=== PATIENT | female | born 2000 | race Caucasian/White ===

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

== ENCOUNTER → 2022-06-01 14:55 | Outpatient (BNVA) | payer OTHER, BC, SELFPAY | PROVIDERS: PCP Family Medicine; Visit Provider Family Medicine | DX: F98.8 Other specified behavioral and emotional disorders with onset usually occurring in childhood and adolescence (principal); E10.9 Type 1 diabetes mellitus without complications | CPT/HCPCS: 80053; 80061; 82043; 82306; 82784; 83036; 83516; 84443; 84480; 84481; 86376; 86800 ==

== ENCOUNTER 2022-06-05 22:14 | Emergency (ER) | payer OTHER, BC, MEDICAID, SELFPAY ==
[2022-06-05 22:28] VITALS: BP 139/90; PULSE 97; RESP 16; TEMP 36.5; O2SAT 99; BMI 31.1
--- NOTE | 2022-06-05 22:36 | W.ED.BACK ---
HPI - Back Pain/Injury General: Chief Complaint: Back Pain/Injury Stated Complaint: Low back pain Time Seen by Provider: 06/05/22 22:36 History of Present Illness: 21-year-old female comes in today with low back pain. Pain started about 3 days ago and she was evaluated and treated at a chiropractor's office today. Since then patient had increased pain and discomfort. Patient appears nontoxic. Patient denies any loss of bowel or bladder control. Associated symptoms: Deny fever(s) Review of Systems Const: Denies: fever(s) Musc: Reports: back pain PFSH ED PFSH: Medical History ADHD Diagnosed at age 7. Diabetes mellitus type 1 Diagnosed at age 14. Psychiatric care Surgical History History of tympanostomy tube placement Social History Smoking and tobacco status: current every day smoker (vape) Second hand smoke exposure: Yes Alcohol intake: never Desire information about alcohol rehabilitation?: No Desire information about substance/drug rehabilitation?: No Physical Exam Const: COMMON NORMALS: alert HENMT: COMMON NORMALS: normocephalic HEAD & SCALP: normocephalic Neck/C-Spine: COMMON NORMALS: full ROM Resp: COMMON NORMALS: normal respiratory effort Cardio: COMMON NORMALS: regular rate RATE: regular rate Back/Pelvis: THORACIC SPINE/UPPER BACK: No thoracic spinal tenderness LUMBAR SPINE/LOWER BACK: No lumbar spinal tenderness and Yes paraspinal muscle tenderness Neuro: SENSORIUM/ORIENTATION: Yes alert Skin: COMMON NORMALS: turgor normal GENERAL SKIN EXAM: turgor normal Course Vital Signs: Vital signs: Vital Signs Temperature 97.7 F 06/05/22 22:28 Pulse Rate 97 06/05/22 22:28 Respiratory Rate 16 06/05/22 22:28 Blood Pressure 139/90 06/05/22 22:28 Pulse Oximetry 99 06/05/22 22:28 Oxygen Delivery Me thod 06/05/22 22:28 MDM - Back Pain/Injury Medical Decision Making 21-year-old female comes in today for complaints of low back pain. On exam patient has muscle tenderness and tightness of the lower lumbar sacral area of the back. Patient has normal range of motion of the extremities. Vital signs are normal. Differential diagnosis includes but not limited to intervertebral disc disease, muscle strain, and facet arthropathy. Exam notes no signs of serious injury or illness. No signs of cauda equina syndrome was noted. Reviewed exam with patient with recommendations for treatment and follow-up. Recommend return to the ER for worsening symptoms or new concerns. Discharge Plan Discharge Patient Disposition: Home Clinical Impression: Lumbosacral pain Condition: Stable Prescriptions: New ketorolac 10 mg tablet 10 mg PO Q6H PRN (Reason: pain) Qty: 20 0RF cyclobenzaprine 5 mg tablet 5 mg PO .HS Qty: 10 0RF No Action Lantus Solostar U-100 Insulin 100 unit/mL (3 mL) insulin pen 42 unit SUBCUT DAILY PRN insulin aspart U-100 [Novolog Flexpen U-100 Insulin] 100 unit/mL (3 mL) insulin pen 5 unit SUBCUT TID PRN Rx Instructions: Per s/s medroxyprogesterone [Depo-Provera] 150 mg/mL suspension IM .every 3 months bupropion HCl 300 mg tablet extended release 24 hr 300 mg PO QAM Qty: 30 1RF Zofran 4 mg tablet 4 mg PO Q6H PRN (Reason: nausea and vomiting) Qty: 20 0RF Discharge Orders: Discharge ED (Routine); Ordered 06/05/22 Ordered By: Willard Erwin Referrals: Dalila Bailey DO [Primary Care Provider] - Discharge Diet: Usual diet Discharge Activity: Increase activity as tolerated Patient Instructions: Back Pain (ED) Activity Restrictions/Additional Instructions: Home and rest. Activity as tolerated. Gentle stretching and range of motion exercises. Use acetaminophen and ketorolac for pain and discomfort. Use cyclobenzaprine at bedtime for muscle laxation and pain control. Follow-up with primary care for further instruction. Return to ED for new concerns. Do not use ibuprofen or naproxen while using ketorolac. Coding Level of Care Code ED Courier Delivery Driver for Aisha Park
[2022-06-05] MEDS: ketorolac 30 mg/mL INJ IM (23:00)
[2022-06-05] MEDS: orphenadrine 30 mg/mL Inj 2 mL 60 MG IM (23:01)
--- NOTE | 2022-06-05 23:03 | XRR_ITS ---
PROCEDURE INFORMATION: Exam: XR Lumbosacral Spine Exam date and time: 06/05/2022 11:13 PM Age: 21 years old Clinical indication: Low back pain TECHNIQUE: Imaging protocol: Radiologic exam of the lumbosacral spine. Views: 2 or 3 views. COMPARISON: No relevant prior studies available. FINDINGS: Bones/joints: Normal. No acute fracture. Normal alignment. Soft tissues: Unremarkable. XR/XR lumbar spine 2-3V* [id number] IMPRESSION: No acute findings.
[2022-06-05 23:34] VITALS: BP 121/72; PULSE 71; RESP 14; O2SAT 100
== END 2022-06-05 23:35 | disposition home or self-care (01) ==
PROVIDERS: Emergency Provider Nurse Practitioner Family; PCP Family Medicine
DX: M54.50 Low back pain, unspecified (principal); Z79.4 Long term (current) use of insulin; E10.9 Type 1 diabetes mellitus without complications; F17.290 Nicotine dependence, other tobacco product, uncomplicated
CPT/HCPCS: 72100; 96372; 99284; J1885; J2360

== ENCOUNTER → 2022-06-16 11:13 | Outpatient (BNVA) | payer OTHER, BC, MEDICAID, SELFPAY | PROVIDERS: PCP Family Medicine; Visit Provider Nurse Practitioner Family | DX: J02.9 Acute pharyngitis, unspecified (principal); J30.9 Allergic rhinitis, unspecified | CPT/HCPCS: 87071; 87880 ==

== ENCOUNTER → 2022-06-19 08:58 | Outpatient (BNVA) | payer OTHER, BC, MEDICAID, SELFPAY | PROVIDERS: PCP Family Medicine; Visit Provider Family Medicine | DX: R09.81 Nasal congestion (principal); R68.89 Other general symptoms and signs; J06.9 Acute upper respiratory infection, unspecified | CPT/HCPCS: 87400; 87426 ==

== ENCOUNTER → 2022-07-24 13:00 | Outpatient (BNVA) | payer OTHER, BC, MEDICAID, SELFPAY | PROVIDERS: PCP Family Medicine; Visit Provider Obstetrics & Gynecology | DX: Z30.9 Encounter for contraceptive management, unspecified (principal) | CPT/HCPCS: 81025 ==

== ENCOUNTER → 2022-07-28 13:20 | Outpatient (BNVA) | payer OTHER, BC, SELFPAY | PROVIDERS: PCP Family Medicine; Visit Provider Family Medicine | DX: E10.9 Type 1 diabetes mellitus without complications (principal) | CPT/HCPCS: 82043 ==

== ENCOUNTER 2022-10-01 13:48 | Emergency (ER) | payer OTHER, BC, MEDICAID, SELFPAY ==
[2022-10-01 13:52] VITALS: BP 130/85; PULSE 102; RESP 16; TEMP 36.7; O2SAT 97
--- NOTE | 2022-10-01 14:09 | ED_ITS ---
HPI - General Adult General: Chief complaint: General Medical Stated complaint: possible DKA Time Seen by Provider: 10/01/22 13:58 History of Present Illness: Patient is a 22-year-old female comes to the ED with hyperglycemia. Patient is a type I diabetic and has insulin pump. Patient says yesterday her insulin pump broke and she did some heavy alcohol drinking yesterday as well, which could be cause of her symptoms today. She started developing nausea and had a couple episodes of emesis yesterday. She was able to give herself some insulin injections but her blood sugar has been over 400 since yesterday. She got her insulin pump working again today. Today she just feels malaise and endorses nausea. She says she is very thirsty as well. Associated symptoms: Reports malaise, nausea and vomiting; Deny chest pain, dyspnea, headache(s), rash or palpitations Review of Systems Const: Reports: malaise; Denies: fever(s), chills or fatigue Eyes: Denies: change in vision or eye discomfort ENMT: Denies: throat pain, odynophagia, nasal discharge or nasal congestion Card: Denies: chest pain, palpitations, edema, swelling of feet/ankles, dyspnea on exertion or orthopnea Resp: Denies: dyspnea, productive cough or non-productive cough GI: Reports: nausea and vomiting; Denies: abdominal pain, diarrhea, constipation or hematochezia : Denies: flank pain, dysuria or hematuria Musc: Denies: neck pain, back pain or extremity swelling Skin/Breast: Denies: rash or new lesions Neuro: Denies: headache(s), numbness in extremities or weakness in extremities Endo: Reports: polydipsia PFSH ED PFSH: Medical History ADHD Diagnosed at age 7. Diabetes mellitus type 1 Diagnosed at age 14. Psychiatric care Surgical History History of tympanostomy tube placement Social History Substance/Drug Use: never Physical Exam Const: COMMON NORMALS: no acute distress, patient oriented x3, healthy appearing and alert HENMT: COMMON NORMALS: normocephalic HEAD & SCALP: normocephalic MOUTH: Normal oral and palatal mucosa present THROAT: posterior oropharynx normal and uvula midline Neck/C-Spine: COMMON NORMALS: supple GENERAL: Yes normal visual inspection Resp: COMMON NORMALS: normal respiratory effort, No retractions, No use of accessory muscles and clear to auscultation bilaterally AUSCULTATION: clear to auscultation bilaterally Cardio: COMMON NORMALS: regular rate, regular rhythm, S1 normal heart sound present, S2 normal heart sound present, No gallops present (Cardio), No clicks present (Cardio), No murmurs present (Cardio) and Peripheral pulses 2+ throughout RATE: regular rate RHYTHM: regular rhythm HEART SOUNDS: S1 normal heart sound present and S2 normal heart sound present PERIPHERAL PULSES: Peripheral pulses 2+ throughout GI: COMMON NORMALS: Normal to inspection, nondistended, normoactive bowel sounds present, Soft to palpation, non-tender and no masses PALPATION: Yes Soft to palpation : COMMON NORMALS: Yes no CVA tenderness BLADDER/KIDNEY EXAM: Yes no CVA tenderness Back/Pelvis: COMMON NORMALS: no CVA tenderness Extremity: COMMON NORMALS: normal to inspection Neuro: COMMON NORMALS: patient oriented x3 SENSORIUM/ORIENTATION: Yes alert GAIT: Yes Normal gait present Skin: GENERAL SKIN EXAM: dry skin Course Vital Signs: Vital signs: Vital Signs Temperature 98.1 F 10/01/22 13:52 Pulse Rate 97 10/01/22 14:57 Respiratory Rate 16 10/01/22 14:57 Blood Pressure 131/81 10/01/22 14:57 Pulse Oximetry 97 10/01/22 14:57 Oxygen Delivery Me thod Room Air 10/01/22 14:57 MDM - General Adult Medical Decision Making Patient is a 22-year-old female comes to the ED with hyperglycemia. Patient is a type I diabetic and has insulin pump. Patient says yesterday her insulin pump broke and she did some heavy alcohol drinking yesterday as well, which could be cause of her symptoms today. She started developing nausea and had a couple episodes of emesis yesterday. She was able to give herself some insulin injections but her blood sugar has been over 400 since yesterday. She got her insulin pump working again today. Today she just feels malaise and endorses nausea. She says she is very thirsty as well. Vitals are stable. Exam patient is benign and she appears nontoxic in no acute distress or pain. Patient's blood glucose was 307 but the rest of her CBC and CMP are unremarkable. Serum ketones were negative. She was given 1 L of IV fluids and some nausea meds and her symptoms proved greatly. She was stable for discharge home and diagnosed with hyperglycemia due to type 1 diabetes and was told to follow-up with her PCP within the next week for reevaluation. Continue monitoring blood sugars closely throughout the day. Patient states she has plenty of insulin at home. Return to ED precautions given. Patient understood and agreed with plan. Lab Data I reviewed the patient's lab results. 10/01/22 14:09 10/01/22 14:09 Laboratory Results WBC 8.2 10^3/uL (4.5-13.0) 10/01/22 14:09 RBC 5.21 10^6/uL (4.1-5.3) 10/01/22 14:09 Hgb 14.3 g/dL (11.5-15.3) 10/01/22 14:09 Hct 44.1 % (37.0-47.0) 10/01/22 14:09 MCV 84.6 fl (81-99) 10/01/22 14:09 MCH 27.4 pg (28.0-34.0) L 10/01/22 14:09 MCHC 32.4 g/dL (30.0-36.0) 10/01/22 14:09 RDW 11.5 % (12.1-15.1) L 10/01/22 14:09 Plt Count 317 10^3/cmm (130-400) 10/01/22 14:09 MPV 9.8 fL (7.4-10.4) 10/01/22 14:09 Neut % (Auto) 67.2 % 10/01/22 14:09 Lymph % (Auto) 26.0 % 10/01/22 14:09 [place] % (Auto) 5.4 % 10/01/22 14:09 Eos % (Auto) 0.5 % 10/01/22 14:09 Baso % (Auto) 0.5 % 10/01/22 14:09 Neut # (Auto) 5.48 10^3/uL (1.8-8.0) 10/01/22 14:09 Lymph # (Auto) 2.1 10^3/uL (1.5-6.5) 10/01/22 14:09 [place] # (Auto) 0.4 10^3/uL (0.2-0.9) 10/01/22 14:09 Eos # (Auto) 0.0 10^3/uL (0.0-0.8) 10/01/22 14:09 Baso # (Auto) 0.0 10^3/uL (0.0-0.1) 10/01/22 14:09 Nucleated RBC % (auto) 0 % 10/01/22 14:09 Nucleated RBCs # 0.0 /100WBC 10/01/22 14:09 Sodium 134 mmol/L (136-145) L 10/01/22 14:09 Potassium 3.6 mmol/L (3.5-5.1) 10/01/22 14:09 Chloride 99 mmol/L (98-107) 10/01/22 14:09 Carbon Dioxide 24 mmol/L (22-29) 10/01/22 14:09 Anion Gap 14.6 (5-19) 10/01/22 14:09 BUN 14 mg/dL (6-20) 10/01/22 14:09 Creatinine 0.7 mg/dL (0.5-0.9) 10/01/22 14:09 GFR Calculation 106.7 mL/min (90-130) 10/01/22 14:09 Glucose 307 mg/dL (65-115) H 10/01/22 14:09 POC Glucose 293 mg/dL (70-110) H 10/01/22 14:22 Calculated Osmolality 290 mOsm/kg (285-295) 10/01/22 14:09 Calcium 9.4 mg/dL (8.5-10.5) 10/01/22 14:09 Total Bilirubin 0.4 mg/dL (0.15-1.2) 10/01/22 14:09 AST 17 U/L (0-32) 10/01/22 14:09 ALT 8 U/L (0-33) 10/01/22 14:09 Alkaline Phosphatase 84 U/L (35-105) 10/01/22 14:09 Total Protein 7.7 g/dL (6.6-8.7) 10/01/22 14:09 Albumin 4.7 g/dL (3.5-5.2) 10/01/22 14:09 Globulin 3.0 g/dL (1.3-4.6) 10/01/22 14:09 Lipase 15 U/L (13-60) 10/01/22 14:09 HCG, Qual Negative (Negative) 10/01/22 14:09 Serum Ketones Negative (Negative) 10/01/22 14:09 Discharge Plan Discharge Patient Disposition: Home Clinical Impression: Hyperglycemia due to type 1 diabetes mellitus Condition: Stable Prescriptions: New Reglan 10 mg tablet 10 mg PO Q6H PRN (Reason: nausea and vomiting) Qty: 15 0RF No Action Lantus Solostar U-100 Insulin 100 unit/mL (3 mL) insulin pen 34 - 40 unit SUBCUT BEDTIME PRN (Reason: WHEN NOT USING OMNIPOD 5 G6) insulin aspart U-100 [Novolog FlexPen U-100 Insulin] 100 unit/mL (3 mL) insulin pen See Rx Instructions .ROUTE .COMPLEX Rx Instructions: SLIDING SCALE DIRECTED NEEDED MAX OF 50 UNITS PER DAY dextroamphetamine-amphetamine [Adderall XR] 10 mg capsule,extended release 24hr 10 mg PO QAM 30 Days Qty: 30 0RF (DME) Omnipod 5 G6 Pods (Gen 5) Cartridge SUBCUT Zofran 4 mg Tablet 4 mg PO Q6H PRN (Reason: Nausea And Vomiting) Novolog U-100 Insulin aspart 100 unit/mL Solution See Rx Instructions .ROUTE .COMPLEX Rx Instructions: DIRECTED WITH OMNIPOD 5 SYSTEM fluticasone propionate 50 mcg/actuation spray,suspension 2 spray INTRANASAL DAILY PRN (Reason: Allergy Symptoms) Discharge Orders: Discharge ED (Routine); Ordered 10/01/22 Ordered By: Jc Belcher Referrals: Dalila Bailey DO [Primary Care Provider] - Discharge Diet: Regular Discharge Activity: Increase activity as tolerated Patient Instructions: Diabetic Hyperglycemia (ED) Activity Restrictions/Additional Instructions: Follow-up with medical provider as directed in the next 5 to 7 days for reevaluation. Continue monitoring blood sugar levels closely throughout the day. Take medications as prescribed. Return to the ER or your medical provider if condition worsens. Please read and understand discharge instructions. Thank you for choosing [facility] for your healthcare needs today. Please realize this is an emergency room and that we are providing you with a medical screening exam and this may not be complete and all inclusive of all the testing and or work up that you may need to determine your ailment or severity of your illness. It is very important that you follow up as instructed or that you return to the Emergency Department should you have concerns or if your condition changes or worsens in any way. Coding Level of Care Code ED Direct Marketing Representative for Aisha Park
[2022-10-01 14:22] LABS: Basophils % 0.5 %; Eosinophils % 0.5 %; Hematocrit 44.1 % (37.0-47.0); Hemoglobin 14.3 g/dL (11.5-15.3); Lymphocytes # 2.1 10^3/uL (1.5-6.5); Mean Corpuscular HGB Conc 32.4 g/dL (30.0-36.0); Mean Corpuscular Hemoglobin 27.4 pg (28.0-34.0); Mean Corpuscular Volume 84.6 fl (81-99); Mean Platelet Volume 9.8 fL (7.4-10.4); Monocytes # 0.4 10^3/uL (0.2-0.9); Monocytes % 5.4 %; Neutrophils # 5.48 10^3/uL (1.8-8.0); Neutrophils % 67.2 %; Nucleated Red Blood Cells % 0 %; Platelet Count 317 10^3/cmm (130-400); Red Blood Count 5.21 10^6/uL (4.1-5.3); Red Cell Distribution Width 11.5 % (12.1-15.1); White Blood Count 8.2 10^3/uL (4.5-13.0)
[2022-10-01] MEDS: sodium chloride 0.9% 1,000 ML 999 ML IV (14:27)
[2022-10-01] MEDS: ondansetron 2 mg/ML SDV 2 mL 4 MG IVP (14:27)
[2022-10-01 14:33] LABS: Glucose Point of Care 293 mg/dL (70-110)
--- NOTE | 2022-10-01 14:40 | PC.PHAR ---
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
[2022-10-01 14:45] LABS: HCG, Serum Qual Negative (Negative); Ketone (Acetest) Serum Negative (Negative)
[2022-10-01 14:51] LABS: Alanine Aminotransferase 8 U/L (0-33); Albumin Level 4.7 g/dL (3.5-5.2); Alkaline Phosphatase 84 U/L (35-105); Anion Gap 14.6 (5-19); Aspartate Amino Transferase 17 U/L (0-32); Blood Urea Nitrogen 14 mg/dL (6-20); Calcium 9.4 mg/dL (8.5-10.5); Carbon Dioxide 24 mmol/L (22-29); Chloride 99 mmol/L (98-107); Glomerular Filtration Rate 106.7 mL/min (90-130); Glucose 307 mg/dL (65-115); Lipase 15 U/L (13-60); Osmolality Calculated 290 mOsm/kg (285-295); Potassium 3.6 mmol/L (3.5-5.1); Sodium 134 mmol/L (136-145); Total Bilirubin 0.4 mg/dL (0.15-1.2); Total Protein 7.7 g/dL (6.6-8.7)
[2022-10-01 14:57] VITALS: BP 131/81; PULSE 97; RESP 16; O2SAT 97
== END 2022-10-01 15:29 | disposition home or self-care (01) ==
PROVIDERS: Emergency Provider Physician Assistant; PCP Family Medicine
DX: E10.65 Type 1 diabetes mellitus with hyperglycemia (principal); Z96.41 Presence of insulin pump (external) (internal); Z79.4 Long term (current) use of insulin
CPT/HCPCS: 36416; 80053; 82009; 82962; 83690; 84703; 85025; 96361; 96374; 99284; J2405; J7030

== ENCOUNTER → 2022-12-28 12:55 | Outpatient (BNVA) | payer OTHER, BC, SELFPAY | PROVIDERS: PCP Family Medicine; Visit Provider Registered Nurse Neonatal Intensive Care | DX: N39.0 Urinary tract infection, site not specified (principal); N89.8 Other specified noninflammatory disorders of vagina; R35.0 Frequency of micturition | CPT/HCPCS: 81000; 81025; 87086; 87491; 87591; 87661 ==

== ENCOUNTER → 2023-01-21 18:20 | Outpatient (BNVA) | payer OTHER, BC, SELFPAY | PROVIDERS: PCP Family Medicine; Visit Provider Registered Nurse Neonatal Intensive Care | DX: N89.8 Other specified noninflammatory disorders of vagina (principal) | CPT/HCPCS: 87491; 87591 ==

== ENCOUNTER → 2023-02-12 13:32 | Outpatient (BNVA) | payer OTHER, BC, SELFPAY | PROVIDERS: PCP Family Medicine; Visit Provider Nurse Practitioner | DX: Z20.2 Contact with and (suspected) exposure to infections with a predominantly sexual mode of transmission (principal); R30.0 Dysuria; Z72.51 High risk heterosexual behavior; N30.00 Acute cystitis without hematuria | CPT/HCPCS: 81000; 87086; 87491; 87591 ==

== ENCOUNTER → 2023-02-20 13:54 | Outpatient (BNVA) | payer OTHER, BC, SELFPAY | PROVIDERS: PCP Family Medicine; Visit Provider Nurse Practitioner Family | DX: J02.9 Acute pharyngitis, unspecified (principal) | CPT/HCPCS: 87880 ==

== ENCOUNTER → 2023-04-18 11:59 | Outpatient (BNVA) | payer OTHER, BC, SELFPAY | PROVIDERS: PCP Family Medicine; Visit Provider Registered Nurse Neonatal Intensive Care | DX: R05.9 Cough, unspecified (principal) | CPT/HCPCS: 87400 ==

== ENCOUNTER → 2023-05-22 12:14 | Outpatient (BNVA) | payer OTHER, BC, SELFPAY | PROVIDERS: PCP Family Medicine; Visit Provider Nurse Practitioner Family | DX: R05.9 Cough, unspecified (principal) | CPT/HCPCS: 87400 ==

== ENCOUNTER 2023-11-24 00:42 | Emergency (ER) | payer OTHER, BC, MEDICAID, SELFPAY ==
[2023-11-24 00:46] VITALS: BP 121/90; PULSE 98; RESP 18; TEMP 36.7; O2SAT 99; BMI 23.8
--- NOTE | 2023-11-24 00:56 | XRR_ITS ---
PROCEDURE INFORMATION: Exam: XR Left Shoulder Exam date and time: 11/24/2023 1:03 AM Age: 23 years old Clinical indication: Injury or trauma; Other: Shut in car door; Other: Pain; Additional info: Trauma pain TECHNIQUE: Imaging protocol: Radiologic exam of the left shoulder. Views: 2 or more views. COMPARISON: CR XR chest 1V portable [id number] 08/13/2021 8:54 AM FINDINGS: Bones/joints: Normal. Soft tissues: Normal. XR/XR shoulder LT min 2V* [id number] IMPRESSION: No acute findings.
--- NOTE | 2023-11-24 00:56 | W.ED.EXTPRO ---
HPI - Extremity Problem General: Chief complaint: Extremity Injury, Upper Stated complaint: Shoulder Pain Time Seen by Provider: 11/24/23 00:46 History of Present Illness: Patient presents to the ER with complaints of left shoulder pain. She says it hurts when she shot in a car door today. Patient having difficulty using left arm due to pain. Pain is worse when she moves it. Patient is no obvious deformity or crepitus. There is a mild abrasion on the distal end of her collarbone Review of Systems General: Reports: 10 or more systems reviewed and unremarkable except in HPI and below PFSH ED PFSH: Medical History Psychiatric care Diabetes mellitus type 1 Diagnosed at age 14. ADHD Diagnosed at age 7. Surgical History History of tympanostomy tube placement Social History Substance/Drug Use: never Female Reproductive History: Date of last menstrual period: 11/03/23 Physical Exam Const: COMMON NORMALS: no acute distress, average body habitus, patient oriented x3, no limitations, healthy appearing, alert and well nourished Neck/C-Spine: COMMON NORMALS: no JVD Chest: COMMONS NORMALS: normal inspection of the chest and normal palpation of entire chest wall Resp: COMMON NORMALS: normal respiratory effort, No retractions, No use of accessory muscles and clear to auscultation bilaterally AUSCULTATION: clear to auscultation bilaterally Cardio: COMMON NORMALS: no JVD, regular rate, regular rhythm, S1 normal heart sound present, S2 normal heart sound present, No gallops present (Cardio), No clicks present (Cardio), No murmurs present (Cardio) and No rub (Cardio) RATE: regular rate RHYTHM: regular rhythm HEART SOUNDS: S1 normal heart sound present and S2 normal heart sound present GI: COMMON NORMALS: Normal to inspection, nondistended, normoactive bowel sounds present, Soft to palpation, non-tender, No hepatosplenomegaly present and no masses PALPATION: Yes Soft to palpation and Yes No hepatosplenomegaly present Extremity: NARRATIVE EXTREMITY EXAM: Tenderness with palpation over left distal collarbone, left scapula and left anterior shoulder joint space. There is no obvious deformity crepitus. Patient is limited range of motion secondary to pain. Neuro: COMMON NORMALS: patient oriented x3 SENSORIUM/ORIENTATION: Yes alert Course Vital Signs: Vital signs: Vital Signs Temperature 98.0 F 11/24/23 00:46 Pulse Rate 98 11/24/23 00:46 Respiratory Rate 18 11/24/23 00:46 Blood Pressure 121/90 11/24/23 00:46 Pulse Oximetry 99 11/24/23 00:46 Oxygen Delivery Me thod Room Air 11/24/23 00:46 MDM - Extremity (Nontraumatic) Medical Decision Making X-ray was taken of the left shoulder which was negative per radiology. Patient be discharged home. Patient is able to use Tylenol and Motrin as needed for pain. Medical Records I reviewed the patient's medical records. Lab Data I reviewed the patient's lab results. Radiology Impressions Shoulder X-Ray 11/24/23 00:56 IMPRESSION: No acute findings. All radiology interpretation(s) finalized by discharge Discharge Plan Discharge Patient Disposition: Home Clinical Impression: Contusion of left shoulder Qualifiers: Encounter type: initial encounter Qualified Code(s): S40.012A - Contusion of left shoulder, initial encounter Condition: Stable Prescriptions: No Action Lantus Solostar U-100 Insulin 100 unit/mL (3 mL) insulin pen 34 - 40 unit SUBCUT BEDTIME PRN (Reason: WHEN NOT USING OMNIPOD 5 G6) insulin aspart U-100 [Novolog FlexPen U-100 Insulin] 100 unit/mL (3 mL) insulin pen See Rx Instructions .ROUTE .COMPLEX Rx Instructions: SLIDING SCALE DIRECTED NEEDED MAX OF 50 UNITS PER DAY dextroamphetamine-amphetamine 20 mg capsule,extended release 24hr 20 mg PO QAM 30 Days Qty: 30 0RF (DME) Omnipod 5 G6 Pods (Gen 5) Cartridge SUBCUT Novolog U-100 Insulin aspart 100 unit/mL Solution See Rx Instructions .ROUTE .COMPLEX Rx Instructions: DIRECTED WITH OMNIPOD 5 SYSTEM Discharge Orders: Discharge ED (Routine); Ordered 11/24/23 Ordered By: Vikas Mccormack Referrals: Dalila Bailey DO [Primary Care Provider] - 1 week Patient Instructions: Contusion in Adults (ED), Shoulder Pain (ED) Activity Restrictions/Additional Instructions: The x-ray of your left shoulder taken in the ER was read by the radiologist as negative for acute fractures. It is suspected you have a contusion or a big deep bruise along with an abrasion. Please take [id number] Tylenol and Motrin as needed for pain as directed. Please follow-up with your family proximal physician especially within 7 days if pain continues. Coding Level of Care Code ED Fabric Inspector for Aisha [email or web address]
== END 2023-11-24 03:50 | disposition home or self-care (01) ==
PROVIDERS: Emergency Provider Emergency Medicine; PCP Family Medicine
DX: S40.012A Contusion of left shoulder, initial encounter (principal); Z79.4 Long term (current) use of insulin; E10.9 Type 1 diabetes mellitus without complications; W23.0XXA Caught, crushed, jammed, or pinched between moving objects, initial encounter
CPT/HCPCS: 73030; 99283

== ENCOUNTER → 2023-12-16 14:29 | Outpatient (BNVA) | payer OTHER, BC, MEDICAID, SELFPAY | PROVIDERS: PCP Family Medicine; Visit Provider Nurse Practitioner Family | DX: N39.0 Urinary tract infection, site not specified (principal); R30.0 Dysuria | CPT/HCPCS: 81000; 87491; 87591 ==

== ENCOUNTER → 2024-11-22 12:17 | Outpatient (BNVA) | payer OTHER, BC, SELFPAY | PROVIDERS: PCP Family Medicine; Visit Provider Nurse Practitioner | DX: J02.9 Acute pharyngitis, unspecified (principal) | CPT/HCPCS: 87071; 87426; 87880 ==